=== PATIENT | male | born 1940 | race Caucasian/White ===

== ENCOUNTER → 2020-07-11 09:48 | Outpatient (CLI) | payer MEDICARE, SELFPAY ==
[2020-07-11 14:04] LABS: Influenza Control Positive
[2020-07-12 14:42] LABS: SARS-CoV-2 RNA PCR Positive
== END ==
PROVIDERS: PCP Family Medicine; Visit Provider Nurse Practitioner Family
DX: U07.1 COVID-19 (principal)
CPT/HCPCS: 87804; C9803; U0003; U0005

== ENCOUNTER 2020-07-12 11:30 | Emergency (ER) | payer MEDICARE, SELFPAY ==
--- NOTE | ~2020-07-12 | XR_ITS ---
XR chest 1V portable DATE: 07/12/2020 15:05 INDICATION: Shortness of breath TECHNIQUE: Portable upright AP views on July 12, 2020 at 1505 hours COMPARISON: None FINDINGS: Mild patchy infiltrate suggested in the mid and lower lung zones bilaterally. Normal heart size. Is aortic unfolding. No hilar or mediastinal enlargement is evident. Diffuse osteopenia. IMPRESSION: Patchy mild infiltrate is suggested in the mid and lower lung zones Reviewed, dictated and finalized at location A. 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
[2020-07-12 11:42] VITALS: BP 115/66; PULSE 73; RESP 28; TEMP 36.8; O2SAT 97
--- NOTE | 2020-07-12 11:45 | ECG_ITS ---
Measurements Intervals Dawson Rate: 78 P: 60 GA: 151 QRS: 58 QRSD: 98 T: 59 QT: 402 QTc: 461 Interpretive Statements SINUS RHYTHM WITH SINUS ARRHYTHMIA BASELINE ARTIFACT- I, III, AVR, AVL NORMAL ECG Electronically Signed On 07-12-2020 12:16:24 [employer] MACHINE OPERATOR by Nikunj Palm D.O.
[2020-07-12 12:01] LABS: Basophils Percent Auto 0.2 % (0.2-1.2); Eosinophils Percent Auto 0.2 % (0-4.4); Hematocrit 42.7 % (42.0-52.0); Hemoglobin 15.3 g/dL (14.0-18.0); Immature Granulocyte Absolute 0.03 K/mm3 (0.00-0.031); Immature Granulocyte Percent A 0.5 % (0-0.5); Lymphocytes Percent Auto 14.4 % (18.3-44.2); Mean Corpuscular HGB Conc 35.8 g/dl (32-36); Mean Corpuscular Hemoglobin 31.9 pg (26-34); Mean Corpuscular Volume 89.1 fl (80-100); Mean Platelet Volume 10.3 fl (7.4-10.4); Monocytes Absolute Auto 0.4 K/mm3 (0.1-0.6); Monocytes Percent Auto 7.1 % (2.6-8.5); Neutrophils Absolute Auto 4.9 K/mm3 (1.3-6.7); Neutrophils Percent Auto 77.6 % (45.5-73.1); Platelet Count Result 189 k/mm3 (150-375); Red Blood Count 4.79 M/mm3 (4.6-6.20); Red Cell Distribution Width 12.5 % (11.5-14.5); White Blood Count 6.2 K/mm3 (4.5-10.0)
[2020-07-12 12:13] LABS: Alanine Aminotransferase 190 U/L (4-50); Albumin Level 3.4 g/dL (3.5-5.1); Alkaline Phosphatase 53 U/L (38-126); Anion Gap 8 mmol/L (8-16); Aspartate Amino Transferase 146 U/L (17-59); Bilirubin,Total 0.8 mg/dL (0.2-1.3); Blood Urea Nitrogen 11 mg/dL (9-20); Carbon Dioxide 25 mmol/L (22-30); Chloride 99 mmol/L (98-107); Estimated CRCL calculation 79 ml/min; Estimated Glomerular Filt Rate > 60; Glucose 122 mg/dL (75-110); Potassium 3.4 mmol/L (3.4-5.0); Sodium 132 mmol/L (137-145)
--- NOTE | 2020-07-12 14:45 | ED.GENADULT ---
HPI - General Adult General Chief complaint: Weakness Stated complaint: weak/recent covid test Time Seen by Provider: 07/12/20 14:38 Source: patient Mode of arrival: ambulatory Limitations: no limitations History of Present Illness HPI narrative: Patient is a 79-year-old male who presents with 2 weeks duration of cough body aches fatigue has been taking Mucinex with minimal improvement has not been seen for this complaint presents per private vehicle appears uncomfortable but not distressed notes he has had some loose stools denies chest pain or dyspnea symptoms worsen with activity patient denies taking any medications denies tobacco history or any lung or heart disease lives at home with family patient denies other sick contacts Related Data Allergies Allergy/AdvReac Type Severity Reaction Status Date / Time No Known Allergies Allergy Verified 07/12/20 15:01 Review of Systems Review of Systems: All systems reviewed & are unremarkable except as noted in HPI and below PMFSH Past Medical History Medical History (Updated 07/12/20 @ 16:33 by Corona Greer PA-C) HLD (hyperlipidemia) IFG (impaired fasting glucose) Social History Social History Smoking status: Former smoker Tobacco type: pipe and cigars Second hand tobacco smoke exposure: No Smoking end date: 05/20/87 Alcohol intake: current Drinks per week: 3 Substance use: never Substance use type: does not use Gender identity (if verbalized by the patient): Male Exam Narrative: Exam Narrative: GENERAL: Ill-appearing, well-nourished, and in no acute distress. HEAD: Normocephalic, atraumatic. EYES: PERRLA and EOMI. ENT: Nares clear, no rhinorrhea or epistaxis. Mucous membranes moist. NECK: Supple. No adenopathy or masses. CHEST: Diminished on auscultation. No respiratory distress. Wheezing and slight crackles in the lung saunders HEART: Regular rate and rhythm. No murmur heard. Normal peripheral pulses. ABDOMEN: Soft, nontender, nondistended EXTREMITIES: Normal range of motion. No edema. SKIN: Warm, dry, no rash. NEURO: No focal deficits. Alert and oriented x3. PSYCH: Normal mood and affect. Course Course Emergency Course: Patient in the room no distress was found to be Covid positive told by his primary care was unclear that the patient had been tested. Patient with no high risk changes in the imaging or blood work will be discharged home treated medically with advised to follow with primary care and to stay in touch with primary care patient agrees with this plan Vital Signs Vital signs: Vital Signs Temperature 98.3 F 07/12/20 11:42 Pulse Rate 73 07/12/20 11:42 Respiratory Rate 28 H 07/12/20 11:42 Blood Pressure 115/66 07/12/20 11:42 Pulse Oximetry 97 07/12/20 11:42 Temperature 98.3 F 07/12/20 11:42 Pulse Rate 71 07/12/20 16:02 Respiratory Rate 20 07/12/20 16:02 Blood Pressure 105/87 07/12/20 16:02 Pulse Oximetry 100 07/12/20 16:02 Medical Decision Making MDM Narrative Medical decision making narrative: Patient with Covid will be discharged home given reasons to return hemodynamically stable ABCs and vital signs intact and stable Vital Signs Vital Signs: Vital Signs Temperature 98.3 F 07/12/20 11:42 Pulse Rate 73 07/12/20 11:42 Respiratory Rate 28 H 07/12/20 11:42 Blood Pressure 115/66 07/12/20 11:42 Pulse Oximetry 97 07/12/20 11:42 Temperature 98.3 F 07/12/20 11:42 Pulse Rate 71 07/12/20 16:02 Respiratory Rate 20 07/12/20 16:02 Blood Pressure 105/87 07/12/20 16:02 Pulse Oximetry 100 07/12/20 16:02 Lab Data Result diagrams: 07/12/20 11:54 07/12/20 11:54 Labs: Lab Results 07/12/20 07/12/20 07/12/20 Range/Units 11:54 11:54 14:51 WBC 6.2 (4.5-10.0) K/mm3 RBC 4.79 (4.6-6.20) M/mm3 Hgb 15.3 (14.0-18.0) g/dL Hct 42.7 (42.0-52.0) % MCV 89.1
[2020-07-12] MEDS: SODIUM CHLORIDE 0.9% IV 1,000 ML 999 ML IV CONT (15:00)
[2020-07-12] MEDS: DEXAMETHASONE SOD PHOS INJ 4 MG/ML VIAL 6 MG IV PUSH (15:00)
[2020-07-12 15:01] VITALS: PULSE 71
[2020-07-12 15:03] VITALS: O2SAT 98
[2020-07-12 15:06] VITALS: BP 113/80; PULSE 68; RESP 20; O2SAT 98
[2020-07-12 15:09] LABS: Lactic Acid Reflex 1.2 mmol/L (0.7-2.1)
--- NOTE | 2020-07-12 15:36 | PC.NURSE ---
Spoke with Navya with update.
[2020-07-12 16:02] VITALS: BP 105/87; PULSE 71; RESP 20; O2SAT 100
[2020-07-12 16:59] LABS: Add Urine Microscopic? YES; Appearance Urine Clear (Clear); Bacteria Urine Trace /hpf; Bilirubin Urine Negative (Negative); Blood Urine Negative (Negative); Color Urine Yellow (Yellow); Glucose Urine UA Negative (Negative); Ketones Urine 1+ mg/dL (Negative); Leukocyte Esterase Ur Negative LEU/UL (Negative); Mucus Urine Rare /lpf; Nitrate Urine Negative (Negative); Protein Urine 1+ mg/dL (Negative); RBC Urine 0-2 /hpf (0-2); Specific Grav Ur 1.018 (1.001-1.035); Squamous Epithelial Cell Urine Rare /hpf (Few); WBC Urine 0-3 /hpf
[2020-07-12 17:35] VITALS: BP 132/73; PULSE 68; RESP 16; O2SAT 96
== END 2020-07-12 17:35 | disposition home or self-care (01) ==
PROVIDERS: Emergency Medicine Emergency Medical Services; Emergency Provider Emergency Medicine; PCP Family Medicine
DX: U07.1 COVID-19 (principal); E78.5 Hyperlipidemia, unspecified; Z87.891 Personal history of nicotine dependence; R91.8 Other nonspecific abnormal finding of lung field
CPT/HCPCS: 36415; 71045; 80053; 81001; 83605; 85025; 87040; 93005; 96365; 96375; 99284; C9803; J0131; J1100; J7030; U0003; U0005